=== PATIENT | male | born 1995 | race Caucasian/White ===

== ENCOUNTER 2017-12-12 04:26 | Emergency (ER) | payer MEDICAID ==
[~2017-12-12] VITALS: Ht 175.3 cm; Wt 82.0 kg
[2017-12-12] MEDS ORDERED: KETOROLAC 30MG/ML VIAL IV STA (05:01)
[2017-12-12] MEDS ORDERED: SODIUM CHLORIDE 0.9% 1,000 ML IV ONE (05:01)
[2017-12-12] MEDS ORDERED: KETOROLAC 60MG/2ML VIAL IM ONE (05:30)
[2017-12-12 06:09] VITALS: BP 145/79
== END 2017-12-12 06:20 | disposition home or self-care (01) ==
LOC: ER 04:26
DX: G44.209 Tension-type headache, unspecified, not intractable (principal); F12.10 Cannabis abuse, uncomplicated
CPT/HCPCS: 96372; 99283; J1885; J7030